=== PATIENT | female | born 1995 | race Caucasian/White ===

== ENCOUNTER → 2017-05-20 | Outpatient (CLI) | payer OTHER ==
[~2017-05-20] MED LIST: NAPR500 PO
[2017-05-20 19:45] LABS: Specimen Source CERVIX
[2017-05-22 01:18] LABS: Source Cervix
== END ==
LOC: LAB 16:17
PROVIDERS: Nurse Practitioner Women's Health
DX: Z11.3 Encounter for screening for infections with a predominantly sexual mode of transmission (principal)
CPT/HCPCS: 87491; 87591

== ENCOUNTER → 2017-09-16 | Outpatient (CLI) | payer OTHER | LOC: LAB SHORT 19:10 → LAB EV 19:10 | DX: N39.0 Urinary tract infection, site not specified (principal) | CPT/HCPCS: 87077; 87086; 87186 ==